=== PATIENT | female | born 1975 | race Caucasian/White ===

== ENCOUNTER 2022-10-05 10:12 | Emergency (ER) | payer MEDICAID ==
[~2022-10-05] VITALS: Ht 162.6 cm; Wt 72.0 kg
[~2022-10-05 10:12] MED LIST: CLON0.3T PO; DIOVAN; LABE100T9 PO
[2022-10-05] MEDS ORDERED: SULF1TAB48 MT (14:08)
[2022-10-05] MEDS ORDERED: CEPH500C2 MT (14:08)
[2022-10-05] MEDS ORDERED: IBUP-2028 MT (14:08)
[2022-10-05] MEDS ORDERED: CEPHALEXIN 250MG CAPSULE PO ONE (14:15)
[2022-10-05] MEDS ORDERED: SULFAMETHOXAZOLE/TRIMETHOPRIM 800/160MG TABLET PO ONE (14:15)
[2022-10-05 14:28] VITALS: BP 128/89
== END 2022-10-05 14:29 | disposition home or self-care (01) ==
LOC: ER 10:17
DX: L03.116 Cellulitis of left lower limb (principal); I11.0 Hypertensive heart disease with heart failure; I50.9 Heart failure, unspecified
CPT/HCPCS: 73630; 93971; 99284